=== PATIENT | female | born 1990 | race Caucasian/White ===

== ENCOUNTER 2018-08-26 12:35 | Emergency (ER) | payer MEDICAID ==
[~2018-08-26] VITALS: Ht 177.8 cm; Wt 98.5 kg
[~2018-08-26 12:35] MED LIST: CLIN150C8 PO; CLIN300C85 PO; NAPR-56 PO
[2018-08-26 12:48] VITALS: BP 119/75
--- NOTE | 2018-08-26 14:10 | NUR ---
pt states i think i have a mammary gland clogged in left breast
== END 2018-08-26 14:31 | disposition home or self-care (01) ==
LOC: ER 12:36
DX: N64.4 Mastodynia (principal); J45.909 Unspecified asthma, uncomplicated; Z88.2 Allergy status to sulfonamides
CPT/HCPCS: 99281

== ENCOUNTER 2019-11-24 11:51 | Emergency (ER) | payer MEDICAID ==
[~2019-11-24] VITALS: Ht 177.8 cm; Wt 103.2 kg
[~2019-11-24 11:51] MED LIST changes: +CLIN-97 PO; -CLIN300C85 PO
[2019-11-24 11:52] VITALS: BP 129/78
[2019-11-24] MEDS ORDERED: NAPR-56 PO (13:20)
[2019-11-24] MEDS ORDERED: METH4TAB3 PO (13:20)
== END 2019-11-24 13:39 | disposition home or self-care (01) ==
LOC: ER 11:52
DX: J02.9 Acute pharyngitis, unspecified (principal); H92.02 Otalgia, left ear; J45.909 Unspecified asthma, uncomplicated; M19.90 Unspecified osteoarthritis, unspecified site; Z86.2 Personal history of diseases of the blood and blood-forming organs and certain disorders involving the immune mechanism; Z90.89 Acquired absence of other organs; Z98.890 Other specified postprocedural states; Z72.89 Other problems related to lifestyle; Z88.2 Allergy status to sulfonamides; Z79.899 Other long term (current) drug therapy
CPT/HCPCS: 87081; 87880; 99283

== ENCOUNTER 2023-12-26 16:41 | Outpatient (CLI) | payer MEDICAID ==
[~2023-12-26 16:41] MED LIST changes: +CLIN-214 PO; -CLIN150C8 PO; +METH4TAB3 PO
== END 2023-12-26 23:59 | disposition home or self-care (01) ==
LOC: RAD 16:41
PROVIDERS: ATTEND Registered Nurse
DX: N92.4 Excessive bleeding in the premenopausal period (principal)
CPT/HCPCS: 76830; 76856; 93976

== ENCOUNTER 2024-07-29 13:59 | Outpatient (CLI) | payer MEDICAID | END 2024-07-29 23:59 | disposition home or self-care (01) | LOC: MRI02 13:59 | PROVIDERS: ATTEND Family Medicine | DX: M51.379 Other intervertebral disc degeneration, lumbosacral region without mention of lumbar back pain or lower extremity pain (principal); M54.50 Low back pain, unspecified; R68.89 Other general symptoms and signs; R53.1 Weakness | CPT/HCPCS: 72148 ==

== ENCOUNTER 2024-12-31 12:39 | Outpatient (CLI) | payer MEDICAID ==
--- NOTE | 2024-12-31 13:30 | RADIOLOGY REPORT ---
DI CHEST,TWO VIEWS CLINICAL HISTORY: ABNORMAL IMMUNOLOGICAL FINDINGS IN SERUM COMPARISON: None TECHNIQUE: Frontal and lateral view of the chest was obtained FINDINGS: Lines and Tubes: None Lungs: No focal consolidation. Pleura: No effusion. No pneumothorax. Cardiomediastinal contours: Unremarkable Bones: No acute osseous abnormality. IMPRESSION: No acute cardiopulmonary disease.
== END 2024-12-31 23:59 | disposition home or self-care (01) ==
LOC: RAD 12:39
PROVIDERS: ATTEND Internal Medicine Rheumatology
DX: R76.8 Other specified abnormal immunological findings in serum (principal)
CPT/HCPCS: 71046